=== PATIENT | male | born 1950 | race Caucasian/White ===

== ENCOUNTER 2017-01-20 16:55 | Emergency (ER) | payer BC, MEDICARE ==
--- NOTE | 2017-01-20 17:21 | EDM.PDOC ---
ED HPI GENERAL MEDICAL PROBLEM - General Chief Complaint: Upper Extremity Injury/Pain Stated Complaint: RIGHT ELBOW INJURY Time Seen by Provider: 01/20/17 17:18 Source of Information: Reports: Patient History Limitations: Reports: No Limitations - History of Present Illness INITIAL COMMENTS - FREE TEXT/NARRATIVE: This patient is a pleasant 66 year old male that presents to the ER. Patient reports he was working in his shop when he tripped over a metal plate and landed on ground on his right elbow. Patient denies hitting his head, loc, n, v , vision changes. Patient denies any other pain complaints other than right elbow. Pulses +2, cap refill < 2 sec, sensory/motor function intact. Neurovascular intact. Onset Date: 01/20/17 Location: Reports: Upper Extremity, Right Front/Back Body Image: 1 - swelling. mild discomfort. Severity: Mild Improves with: Reports: None Worsens with: Reports: None Associated Symptoms: Denies: Confusion, Chest Pain, Cough, cough w sputum, Diaphoresis, Fever/Chills, Headaches, Loss of Appetite, Malaise, Nausea/Vomiting , Rash, Seizure, Shortness of Breath, Syncope, Weakness - Related Data Allergies Allergy/AdvReac Type Severity Reaction Status Date / Time No Known Allergies Allergy Verified 01/20/17 17:02 Home Meds: Home Meds Aspirin 325 mg PO QAM 01/20/17 [History] Insulin Glargine,Hum.Rec.Anlog [Ronald Banuelos] 25 units SUBCUT BEDTIME [History] Lisinopril [Lisinopril] 20 mg PO DAILY 01/20/17 [History] Multivitamin [Daily Multiple Vitamin] 1 tab PO DAILY 01/20/17 [History] amLODIPine Besylate [Amlodipine Besylate] 10 mg PO DAILY 01/20/17 [History] metFORMIN HCl [Metformin HCl] 1,000 mg PO BID 01/20/17 [History] Past Medical History Cardiovascular History: Reports: Hypertension Endocrine/Metabolic History: Reports: Diabetes, Type II - Past Surgical History GI Surgical History: Reports: Cholecystectomy Musculoskeletal Surgical History: Reports: Knee Replacement Social & Family History - Tobacco Use Smoking Status *Q: Former Smoker Used Tobacco, but Quit: Yes Month Tobacco Last Used: 40 YEARS AGO - Caffeine Use Caffeine Use: Reports: None - Alcohol Use Days Per Week of Alcohol Use: 3 Number of Drinks Per Day: 2 Total Drinks Per Week: 6 - Recreational Drug Use Recreational Drug Use: No Review of Systems - Review of Systems Review Of Systems: See Below Constitutional: Reports: No Symptoms Eyes: Reports: No Symptoms Ears: Reports: No Symptoms Nose: Reports: No Symptoms Mouth/Throat: Reports: No Symptoms Respiratory: Reports: No Symptoms Cardiovascular: Reports: No Symptoms GI/Abdominal: Reports: No Symptoms Genitourinary: Reports: No Symptoms Musculoskeletal: Reports: Joint Pain (left elbow pain, swelling. ), Joint Swelling (left elbow) Skin: Reports: No Symptoms Neurological: Reports: No Symptoms Psychiatric: Reports: No Symptoms ED EXAM, GENERAL - Physical Exam Exam: See Below Exam Limited By: No Limitations General Appearance: Alert, WD/WN, No Apparent Distress Head: Atraumatic, Normocephalic Neck: Normal Inspection, Supple, Non-Tender, Full Range of Motion Respiratory/Chest: No Respiratory Distress, Lungs Clear, Normal Breath Sounds, No Accessory Muscle Use, Chest Non-Tender Cardiovascular: Normal Peripheral Pulses, Regular Rate, Rhythm, No Edema, No Gallop, No JVD, No Murmur, No Rub Peripheral Pulses: 2+: Brachial (L), Brachial (R), Radial (L), Radial (R) Back Exam: Normal Inspection, Full Range of Motion Extremities: Normal Range of Motion, No Pedal Edema, Normal Capillary Refill, Joint Swelling (left elbow distal/proximal ulna location. ), Other (Skin intact. Pain, tenderness elbow distal. ). No: Slow Capillary Refill, Limited Range of Motion Neurological: Alert, Oriented Psychiatric: Normal Affect, Normal Mood Skin Exam: Warm, Dry, Intact, Normal Color, No Rash Lymphatic: No Adenopathy ED TRAUMA EXTREMITY PROCEDURES - Splinting Right Upper Extremity Splint Site: Right elbow Pre-Procedure NV Status: Normal Post-Procedure NV Status: Normal Splint Material: Fiberglass Splint Design: Other (30 degree extension. ) Applied & Form Fitted By: Provider Provider Post-Splint Application NV Check: NV Status Normal, Good Position Complications: No Progress/Comments: Used 2 two foot 5 inch orthoglas splints to cover the area due to large arm and swelling for good coverage. Sock, webril, orthoglass, then tad wraps applied. Course - Vital Signs Last Recorded V/S: Last Vital Signs Temp 97.5 F 01/20/17 16:56 Pulse 74 01/20/17 16:56 Resp 16 01/20/17 16:56 BP 164/90 H 01/20/17 16:56 Pulse Ox 97 01/20/17 16:56 - Orders/Labs/Meds Orders: Active Orders 24 hr Category Date Time Status Elbow Min 3V Rt [CR] Stat Exams 01/20/17 17:16 Taken - Radiology Interpretation Free Text/Narrative:: Right elbow: Fracture olecranon distal, proximal ulna fracture Right. - Re-Assessments/Exams Free Text/Narrative Re-Assessment/Exam: 01/20/17 18:20 Discussed with radiologist at Dr. Colbert. He would like me to orthoglass the patient in 30 degree extension angle. Has given patient optino to be admitted today and possible surgery this weekend. I have discussed this patient. He would like to have this done. I then spoke to Dr. Huffman hospitalist about this patient. He has accepted the patient. This patient will be transferred via private vehicle by . Patient reports no pain while in splint, will not medicate. Departure - Departure Time of Disposition: 18:18 Disposition: DC/Tfer to Acute Hospital 02 Condition: Fair Clinical Impression: Fracture of elbow Qualifiers: Encounter type: initial encounter Fracture type: closed Laterality: right Qualified Code(s): S42.401A - Unspecified fracture of lower end of right humerus , initial encounter for closed fracture - Discharge Information Referrals: Alex Goodwin MD [Primary Care Provider] - Forms: ED Department Discharge Additional Instructions: Go to If at any point your right arm feels like the splint is to tight, numb, tingling , painful, cutting off circulation = Please Remove It. - My Orders Last 24 Hours: My Active Orders 01/20/17 17:16 Elbow Min 3V Rt [CR] Stat - Assessment/Plan Last 24 Hours: My Active Orders 01/20/17 17:16 Elbow Min 3V Rt [CR] Stat Plan: PLEASE SEE RN NOTE FOR PFSH. Patient is being transferred via private vehicle to . The risks of transfer are mvc, becoming an open fracture, , nerve damage, pain. The benefits of transfer are surgery, risk specialist, higher level of care. The benefits of staying in [place] are close to home. The risks of staying in [place] are no specialist, no orthopedic, no surgeon.
== END 2017-01-20 18:33 ==
LOC: CC.ED 16:55
DX: S42.401A Unspecified fracture of lower end of right humerus, initial encounter for closed fracture (principal); I10 Essential (primary) hypertension; E11.9 Type 2 diabetes mellitus without complications; Z87.891 Personal history of nicotine dependence; Z79.4 Long term (current) use of insulin; Z79.82 Long term (current) use of aspirin; W20.8XXA Other cause of strike by thrown, projected or falling object, initial encounter
CPT/HCPCS: 29105; 73080-RT; 99283; 99284

== ENCOUNTER 2020-01-03 13:53 | Emergency (ER) | payer BC ==
[2020-01-03] MEDS ORDERED: Sodium Chloride 0.9% 1,000 ML IV ONE (14:34)
--- NOTE | 2020-01-03 15:20 | EDM.PDOC ---
ED HPI GENERAL MEDICAL PROBLEM - General Chief Complaint: General Stated Complaint: COVID+. SOB Time Seen by Provider: 01/03/20 14:20 Source of Information: Reports: Patient History Limitations: Reports: No Limitations - History of Present Illness INITIAL COMMENTS - FREE TEXT/NARRATIVE: This patient is a 69 year old male that presents to the ER. Patient reports that on Sunday he was tested in [place] for COVID. He reports for 8 days having mild congestion and dry cough. He reports his symptoms mostly started getting worse on Sunday with increased cough dry, shortness of breath, congestion, drainage, generally weak, fatigue. He reports his daughter is nurse and encouraged him to come get checked out. Onset Date: 12/26/19 Duration: Day(s): (8) Severity: Mild Improves with: Reports: None Worsens with: Reports: None Associated Symptoms: Reports: Cough, Malaise, Shortness of Breath, Weakness (generally). Denies: Confusion, Chest Pain, cough w sputum, Diaphoresis, Fever/Chills, Headaches, Loss of Appetite, Nausea/Vomiting, Rash, Seizure, Syncope - Related Data Allergies Allergy/AdvReac Type Severity Reaction Status Date / Time No Known Allergies Allergy Verified 01/03/20 14:04 Home Meds: Home Meds Aspirin 81 mg PO QAM 01/20/17 [History] Insulin Glargine,Hum.Rec.Anlog [Ronald Banuelos] 20 units SUBCUT BEDTIME 01/20/17 [History] Lisinopril 20 mg PO DAILY 01/20/17 [History] Multivitamin [Daily Multiple Vitamin] 1 tab PO DAILY 01/20/17 [History] amLODIPine Besylate [Amlodipine Besylate] 10 mg PO DAILY 01/20/17 [History] metFORMIN HCl [Metformin HCl] 1,000 mg PO BID 01/20/17 [History] dexAMETHasone [Decadron] 6 mg PO DAILY #8 tablet 01/03/20 [Rx] Past Medical History Cardiovascular History: Reports: Hypertension Endocrine/Metabolic History: Reports: Diabetes, Type II - Past Surgical History GI Surgical History: Reports: Cholecystectomy Musculoskeletal Surgical History: Reports: Knee Replacement Social & Family History - Family History Family Medical History: No Pertinent Family History - Tobacco Use Tobacco Use Status *Q: Never Tobacco User Second Hand Smoke Exposure: No - Caffeine Use Caffeine Use: Reports: None - Recreational Drug Use Recreational Drug Use: No ED ROS GENERAL - Review of Systems Review Of Systems: See Below Constitutional: Reports: Malaise, Fatigue. Denies: Fever HEENT: Reports: Sinus Problem, Throat Pain Respiratory: Reports: Shortness of Breath, Cough. Denies: Sputum Cardiovascular: Reports: No Symptoms Endocrine: Reports: No Symptoms GI/Abdominal: Reports: No Symptoms : Reports: No Symptoms Musculoskeletal: Reports: No Symptoms Skin: Reports: No Symptoms Neurological: Reports: No Symptoms Psychiatric: Reports: No Symptoms Hematologic/Lymphatic: Reports: No Symptoms Immunologic: Reports: No Symptoms ED EXAM, GENERAL - Physical Exam Exam: See Below Exam Limited By: No Limitations General Appearance: Alert, WD/WN, No Apparent Distress Eye Exam: Bilateral Eye: Normal Inspection, PERRL Ears: Normal External Exam, Normal Canal, Hearing Grossly Normal, Normal TMs Ear Exam: Bilateral Ear: Auricle Normal, Canal Normal, TM normal Nose: Normal Inspection, Normal Mucosa, No Blood Throat/Mouth: Normal Inspection, Normal Lips, Normal Teeth, Normal Gums, Normal Oropharynx, Normal Voice, No Airway Compromise Head: Atraumatic, Normocephalic Neck: Normal Inspection, Supple, Non-Tender, Full Range of Motion Respiratory/Chest: No Respiratory Distress, Lungs Clear, Normal Breath Sounds, No Accessory Muscle Use, Chest Non-Tender. No: Respiratory Distress, Decreased Breath Sounds, Crackles, Rales, Rhonchi, Wheezing, Stridor, Pleural Rub, Accessory Muscle Use, Retractions, Splinting, Prolonged Expiration Cardiovascular: Normal Peripheral Pulses, Regular Rate, Rhythm, No Edema, No Gallop, No JVD, No Murmur, No Rub Peripheral Pulses: 2+: Radial (L), Radial (R), Posterior Tibial (L), Posterior Tibial (R) GI/Abdominal: Soft, Non-Tender Back Exam: Normal Inspection Extremities: Normal Inspection, Normal Range of Motion, Non-Tender, No Pedal Edema, Normal Capillary Refill Neurological: Alert, Oriented, Normal Cognition, No Motor/Sensory Deficits Psychiatric: Normal Affect, Normal Mood Skin Exam: Warm, Dry, Intact, Normal Color, No Rash Lymphatic: No Adenopathy Course - Vital Signs Last Recorded V/S: Last Vital Signs Temp 98.3 F 01/03/20 13:54 Pulse 81 01/03/20 15:29 Resp 20 01/03/20 15:29 BP 155/87 H 01/03/20 15:29 Pulse Ox 95 01/03/20 15:29 - Orders/Labs/Meds Orders: Active Orders 24 hr Category Date Time Status Chest 2V [CR] Stat Exams 01/03/20 13:53 Taken CULTURE BLOOD [BC] Stat Lab 01/03/20 14:15 Received CULTURE BLOOD [BC] Stat Lab 01/03/20 14:24 Received Sodium Chloride 0.9% [Normal Saline] 1,000 ml Med 01/03/20 14:34 Active IV ONETIME dexAMETHasone Med 01/03/20 15:41 Once 6 mg PO ONETIME ONE dexAMETHasone Med 01/03/20 15:42 Once 6 mg PO ONETIME ONE Blood Culture x2 Reflex Set [OM.PC] Stat Oth 01/03/20 13:53 Ordered Medication Orders Sodium Chloride (Normal Saline) 1,000 mls @ 250 mls/hr IV ONETIME ONE Stop: 01/03/20 18:33 Last Admin: 01/03/20 14:53 Dose: 250 mls/hr Documented by: TRIP Labs: Laboratory Tests 01/03/20 01/03/20 01/03/20 Range/Units 14:15 14:15 14:15 WBC 8.6 (5.0-10.0) 10^3/uL RBC 5.34 (4.50-6.00) 10^6/uL Hgb 18.1 H* (14.0-18.0) g/dL Hct 54.1 H (40.0-54.0) % MCV 101.3 H (82.0-94.0) fL MCH 33.9 H (27.0-32.0) pg MCHC 33.5 (33.0-38.0) g/dL RDW Coeff of Stephenie 13.7 (11.0-15.0) % Plt Count 161 (150-400) 10^3/uL Neut % (Auto) 80.3 (35-85) % Lymph % (Auto) 10.4 (10-55) % [place] % (Auto) 8.0 (0-16) % Eos % (Auto) 1.1 (0-5) % Baso % (Auto) 0.2 (0-3) % Neut # (Auto) 6.87 (1.80-7.00) 10^3/uL Lymph # (Auto) 0.89 L (1.00-4.80) 10^3/uL [place] # (Auto) 0.68 (0.00-0.80) 10^3/uL Eos # (Auto) 0.09 (0.00-0.45) 10^3/uL Baso # (Auto) 0.02 10^3/uL D-Dimer, Quantitative (0.00-0.50) Sodium 132 L (136-145) mEq/L Potassium 4.5 (3.5-5.0) mEq/L Chloride 98 (98-106) mEq/L Carbon Dioxide 27 (21-32) mmol/L BUN 26 H D (7-18) mg/dL Creatinine 1.5 H (0.7-1.3) mg/dL Est Cr Clr Drug Dosing 47.31 mL/min Estimated GFR (MDRD) 46 L (>=60) mL/min Glucose 173 H (75-99) mg/dL Lactic Acid 1.7 (0.4-2.0) mmol/L Calcium 8.5 (8.4-10.1) mg/dL Magnesium 1.8 (1.8-2.4) mg/dL Total Bilirubin 1.1 H (0.0-1.0) mg/dL AST 61 H (15-37) U/L ALT 58 (12-78) U/L Alkaline Phosphatase 65 (46-116) U/L C-Reactive Protein 9.4 H (0.2-0.8) mg/dL Total Protein 7.4 (6.4-8.2) g/dL Albumin 2.5 L (3.4-5.0) g/dL 01/03/20 Range/Units 14:15 WBC (5.0-10.0) 10^3/uL RBC (4.50-6.00) 10^6/uL Hgb (14.0-18.0) g/dL Hct (40.0-54.0) % MCV (82.0-94.0) fL MCH (27.0-32.0) pg MCHC (33.0-38.0) g/dL RDW Coeff of Stephenie (11.0-15.0) % Plt Count (150-400) 10^3/uL Neut % (Auto) (35-85) % Lymph % (Auto) (10-55) % [place] % (Auto) (0-16) % Eos % (Auto) (0-5) % Baso % (Auto) (0-3) % Neut # (Auto) (1.80-7.00) 10^3/uL Lymph # (Auto) (1.00-4.80) 10^3/uL [place] # (Auto) (0.00-0.80) 10^3/uL Eos # (Auto) (0.00-0.45) 10^3/uL Baso # (Auto) 10^3/uL D-Dimer, Quantitative 0.72 H (0.00-0.50) Sodium (136-145) mEq/L Potassium (3.5-5.0) mEq/L Chloride (98-106) mEq/L Carbon Dioxide (21-32) mmol/L BUN (7-18) mg/dL Creatinine (0.7-1.3) mg/dL Est Cr Clr Drug Dosing mL/min Estimated GFR (MDRD) (>=60) mL/min Glucose (75-99) mg/dL Lactic Acid (0.4-2.0) mmol/L Calcium (8.4-10.1) mg/dL Magnesium (1.8-2.4) mg/dL Total Bilirubin (0.0-1.0) mg/dL AST (15-37) U/L ALT (12-78) U/L Alkaline Phosphatase (46-116) U/L C-Reactive Protein (0.2-0.8) mg/dL Total Protein (6.4-8.2) g/dL Albumin (3.4-5.0) g/dL Meds: Medications Generic Name Dose Route Start Last Admin Trade Name Freq PRN Reason Stop Dose Admin Sodium Chloride 1,000 mls @ 250 mls/hr 01/03/20 14:34 01/03/20 14:53 Normal Saline IV 01/03/20 18:33 250 mls/hr ONETIME ONE Administration - Radiology Interpretation Free Text/Narrative:: CXR: Covid. No focal infiltrates. CT Results Date: 01/03/20 - Re-Assessments/Exams Free Text/Narrative Re-Assessment/Exam: 01/03/20 15:32 I spent a good 20 minutes in the room talking with this patient about possible admission due to his needing oxygen. His saturation is now 94% on 3L NC. He reports the oxygen does help. We discussed all risk vs benefits of admit vs discharge home. The patient does not want to be admitted. He said that he would like to be discharged home on oxygen. He understands that he is at a risk of , cardiac arrest, increased hypoxia. He understands and voices back the risk to me. I will discharge patient home on oxygen and steroids. He is educated when to return and voices back understanding. Is being educated about oxygen use in the ER by RN. Patient tx per CDC current guidelines. Departure - Departure Time of Disposition: 15:35 Disposition: Home, Self-Care 01 Condition: Fair Clinical Impression: COVID-19, Hypoxemia - Discharge Information *PRESCRIPTION DRUG MONITORING PROGRAM REVIEWED*: Not Applicable *COPY OF PRESCRIPTION DRUG MONITORING REPORT IN PATIENT ALLI: Not Applicable Prescriptions: dexAMETHasone [Decadron] 6 mg PO DAILY #8 tablet Instructions: Hypoxia, COVID-19 Frequently Asked Questions, Home Oxygen Use, Adult, COVID-19: How to Protect Yourself and Others - CDC, Oximetry, Prevent the Spread of COVID-19 if You Are Sick - CDC Forms: ED Department Discharge Additional Instructions: Followup with your primary care provider early next wee for a recheck and oxygen saturation recheck Return to the ER for worsening of condition or any emergent concerns Increase fluid intake Home oxygen nasal cannula to keep oxygen saturation above 92% Do not smoke or get oxygen tank around flammables Use pulse ox to track your oxygen saturation Please call [phone] with any questions or concerns about your oxygen or other questions Dexamethasone 6mg 1 pill once a day for 10 days #8 no refill #2 take home Sepsis Event Note (ED) - Evaluation Sepsis Screening Result: No Definite Risk - Focused Exam Vital Signs: Vital Signs Temp Pulse Resp BP Pulse Ox 01/03/20 15:29 81 20 155/87 H 95 01/03/20 13:54 98.3 F 87 20 166/85 H 88 L - My Orders Last 24 Hours: My Active Orders 01/03/20 13:53 Chest 2V [CR] Stat Blood Culture x2 Reflex Set [OM.PC] Stat 01/03/20 14:15 CULTURE BLOOD [BC] Stat 01/03/20 14:24 CULTURE BLOOD [BC] Stat 01/03/20 14:34 Sodium Chloride 0.9% [Normal Saline] 1,000 ml IV ONETIME 01/03/20 15:41 dexAMETHasone 6 mg PO ONETIME ONE 01/03/20 15:42 dexAMETHasone 6 mg PO ONETIME ONE - Assessment/Plan Last 24 Hours: My Active Orders 01/03/20 13:53 Chest 2V [CR] Stat Blood Culture x2 Reflex Set [OM.PC] Stat 01/03/20 14:15 CULTURE BLOOD [BC] Stat 01/03/20 14:24 CULTURE BLOOD [BC] Stat 01/03/20 14:34 Sodium Chloride 0.9% [Normal Saline] 1,000 ml IV ONETIME 01/03/20 15:41 dexAMETHasone 6 mg PO ONETIME ONE 01/03/20 15:42 dexAMETHasone 6 mg PO ONETIME ONE Plan: PLEASE SEE RN NOTE FOR PFSH
[2020-01-03] MEDS ORDERED: Dexamethasone 4 MG Tab PO ONE ×2 (15:41→15:42)
== END 2020-01-03 16:19 | disposition home or self-care (01) ==
LOC: CC.ED 13:53
DX: U07.1 COVID-19 (principal); R09.02 Hypoxemia; I10 Essential (primary) hypertension; E11.9 Type 2 diabetes mellitus without complications; Z79.82 Long term (current) use of aspirin; Z79.4 Long term (current) use of insulin; Z79.899 Other long term (current) drug therapy
CPT/HCPCS: 36415; 71046; 80053; 83605; 83735; 85025; 85379; 86140; 87040; 99285-25; J7030; J8540